=== PATIENT | male | born 1990 | race Caucasian/White ===

== ENCOUNTER 2016-08-02 12:42 | Emergency (ER) | payer SELFPAY ==
[~2016-08-02] VITALS: Ht 193 cm; Wt 68.0 kg
[2016-08-02 12:46] VITALS: BP 118/76
--- NOTE | 2016-08-02 13:25 | PHYS DOC ---
Past Medical History Past Medical History: No Pertinent History Past Surgical History: Tonsillectomy, Other Additional Past Surgical Histo: ACL SX, BACK SX, LYMPH NODE REMOVED FROM RIGHT ARM Alcohol Use: None Drug Use: None Adult General Chief Complaint Chief Complaint: BURN/SMOKE INHALATION HPI HPI Patient is a 25 year old male presents emergency department stating that he was using 3 clinical informatics physician to clean with today. He states that he has new close on network and been providing him with in which she started cleaning a 5: 00 this when he states about 8:30 he developed some stinging numbness and tingling into his right hand. He states that he took the glove off and noticed that he had some red areas on the back of the right hand. He denies any blister drainage or discharge. Patient states that he cleaned the area with soap and water and applied ice packs applied cool water to the area as well as LO and alcohol. He states he's had no relief. He has not taken any pain medication. Patient states his last tetanus immunization was in 2013. Patient is right-hand dominant. Review of Systems Review of Systems Constitutional: Denies fever or chills [] Eyes: Denies change in visual acuity, redness, or eye pain [] HENT: Denies nasal congestion or sore throat [] Respiratory: Denies cough or shortness of breath [] Cardiovascular: No additional information not addressed in HPI [] GI: Denies abdominal pain, nausea, vomiting, bloody stools or diarrhea [] : Denies dysuria or hematuria [] Musculoskeletal: Denies back pain or joint pain [] Integument: Denies rash or skin lesions. Complaint of burn to the right hand Neurologic: Denies headache, focal weakness or sensory changes [] Endocrine: Denies polyuria or polydipsia [] Allergies Allergies Allergies Coded Allergies Type Severity Reaction Last Updated Verified oxycodone Allergy Severe Anaphylaxis 08/02/16 Yes Physical Exam Physical Exam Constitutional: Well developed, well nourished, no acute distress, non-toxic appearance. [] HENT: Normocephalic, atraumatic, bilateral external ears normal, oropharynx moist, no oral exudates, nose normal. [] Eyes: PERRLA, EOMI, conjunctiva normal, no discharge. [] Neck: Normal range of motion, no tenderness, supple, no stridor. [] Cardiovascular:Heart rate regular rhythm Lungs & Thorax: No respiratory distress noted. Skin: Warm, dry, no erythema, no rash. Noted some small red areas on the back of the hand. I do not appreciate any blisters or any significant redness. Back: No tenderness Extremities: No tenderness, no cyanosis, no clubbing, ROM intact, no edema. [] Neurologic: Alert and oriented X 3, normal motor function, normal sensory function, no focal deficits noted. [] Psychologic: Affect normal, judgement normal, mood normal. [] Current Patient Data Vital Signs Vital Signs Date Time Temp Pulse Resp B/P (MAP) Pulse Ox O2 Delivery O2 Flow Rate FiO2 08/02/16 12:46 98.0 77 18 98 Room Air 98.0 EKG EKG [] Radiology/Procedures Radiology/Procedures [] Course & Med Decision Making Course & Med Decision Making Pertinent Labs and Imaging studies reviewed. (See chart for details) Poison control was notified with recommendations to clean the area with soap and water and apply ice packs and antibiotic ointment. Spoke with patient in regards to treatment recommendations from poison control also recommended Tylenol and ibuprofen for pain and discomfort and elevation. Patient agrees with discharge instructions, treatment regimens and follow-up recommendations. Signs and symptoms to return back to emergency department as been provided. [] Dragon Disclaimer Dragon Disclaimer This electronic medical record was generated, in whole or in part, using a voice recognition dictation system. Departure Departure Impression: Primary Impression: Chemical burn of back of right hand Disposition: 01 HOME, SELF-CARE Condition: STABLE Referrals: NO PCP (PCP) Patient Instructions: Chemical Burn, [id number] Additional Instructions: Keep the area clean and dry. Tylenol or ibuprofen for pain and discomfort. Ice packs to the hand as needed for pain and discomfort. You may also apply antibiotic ointment to the area. Follow-up to primary care physician in the next 3-5 days. Return back to emergency prior signs and symptoms of become worse. JUNIOR BOOGIE APRN Aug 02, 2016 13:25
[2016-08-02] MEDS ORDERED: IBUPROFEN 800 MG TABLET. PO ONE (13:30)
== END 2016-08-02 13:41 | disposition home or self-care (01) ==
LOC: ER 12:42
DX: T23.461A Corrosion of unspecified degree of back of right hand, initial encounter (principal); Z88.6 Allergy status to analgesic agent; Y93.E9 Activity, other interior property and clothing maintenance; Y99.8 Other external cause status; Y92.89 Other specified places as the place of occurrence of the external cause
CPT/HCPCS: 99282

== ENCOUNTER 2017-09-17 17:08 | Emergency (ER) | payer OTHER ==
[~2017-09-17] VITALS: Ht 193 cm; Wt 88.5 kg
--- NOTE | 2017-09-17 18:01 | PHYS DOC ---
Past Medical History Past Medical History: No Pertinent History Past Surgical History: Tonsillectomy, Other Additional Past Surgical Histo: ACL SX, BACK SX, LYMPH NODE REMOVED FROM RIGHT ARM Alcohol Use: None Drug Use: None Social History Narrative: RECOVERING DRUG USER Adult General Chief Complaint Chief Complaint: LOWEREXTREMITY INJURY HPI HPI Patient is a 26 year old male with no significant medical history who presents today complaining of intermittent sharp 6 out of 10 left medial knee pain that began yesterday after he accidentally hit his left medial knee with a pallet at work. Patient states he is able to ambulate and bear weight to the knee. Denies the pallet falling on him. Review of Systems Review of Systems Constitutional: Denies fever or chills [] Musculoskeletal: Reports left medial knee pain Integument: Denies rash or skin lesions [] Neurologic: Denies headache, focal weakness or sensory changes [] All other systems were reviewed and found to be within normal limits, except as documented in this note. Allergies Allergies Allergies Coded Allergies Type Severity Reaction Last Updated Verified oxycodone Allergy Severe Anaphylaxis 08/02/16 Yes Physical Exam Physical Exam Constitutional: Well developed, well nourished, no acute distress, non-toxic appearance. [] Skin: Warm, dry, no erythema, no rash. [] Back: No tenderness, no CVA tenderness. [] Extremities: Left medial knee with small amount of soft tissue swelling. Tenderness on the left medial knee. Full range of motion to the left knee. Negative Urvashi sign, negative Sabrina sign, negative anterior-posterior drawer sign to the left knee. +2 left pedal pulse. Cap refill less than 2 seconds the left toes. Sensation intact to the left lower extremity. Neurologic: Alert and oriented X 3, normal motor function, normal sensory function, no focal deficits noted. [] Psychologic: Affect normal, judgement normal, mood normal. [] Current Patient Data Vital Signs Vital Signs Date Time Temp Pulse Resp B/P (MAP) Pulse Ox O2 Delivery O2 Flow Rate FiO2 09/17/17 17:38 98.4 95 18 134/84 (101) 96 Room Air 98.4 EKG EKG [] Radiology/Procedures Radiology/Procedures []PROCEDURE: KNEE LEFT 4V 4 view left knee radiographs 09/17/2017 CLINICAL HISTORY: Left knee pain post injury. AP, lateral, oblique and sunrise digital radiographs of the left knee were obtained. Soft tissue swelling is seen involving the anterior right knee particularly superior to the left patella. No fracture or dislocation of the left knee is seen. There is no radiographic evidence of a joint effusion. IMPRESSION: No fracture or dislocation of the left knee is seen. Electronically signed by: Andry Rojas MD (09/17/2017 6:03 PM) [facility] DICTATED and SIGNED BY: ANDRY ROJAS MD DATE: 09/17/171800 Course & Med Decision Making Course & Med Decision Making Pertinent Labs and Imaging studies reviewed. (See chart for details) This is a 26-year-old male patient presented to the ED today with left knee contusion after accidentally hitting his left medial knee with a pallet at work. Left knee x-rays interpreted by radiologist were negative for any acute findings. Saurabh bandage applied to the left knee by the Ed RN. Neurovascular exam is intact. Ice elevation encouraged. Tylenol/ Motrin for pain. Follow-up with orthopedic doctor in 1-2 weeks as needed. Dragon Disclaimer Dragon Disclaimer This electronic medical record was generated, in whole or in part, using a voice recognition dictation system. Departure Departure Impression: Primary Impression: Contusion of left knee Disposition: HOME, SELF-CARE Condition: STABLE Referrals: NO PCP (PCP) EFREN NEVAREZ MD Follow-up with your own doctor or the provided doctor in 1-2 weeks as needed Patient Instructions: Contusion, [id number] Additional Instructions: You were seen in the emergency room with left knee contusion. You knee x-rays are negative for any acute findings. Ice elevate the knee. Wear the Saurabh bandage provided as needed and tolerated. Follow-up with the provided orthopedic doctor in 1-2 weeks as needed. Take Tylenol/Motrin for pain. Problem Qualifiers Primary Impression: Contusion of left knee Encounter type: initial encounter Qualified Codes: S80.02XA - Contusion of left knee, initial encounter CLIFYOLETTE SHRESTHA ENGLISH LECTURER Sep 17, 2017 18:01
--- NOTE | 2017-09-17 18:07 | RAD ---
4 view left knee radiographs 09/17/2017 CLINICAL HISTORY: Left knee pain post injury. AP, lateral, oblique and sunrise digital radiographs of the left knee were obtained. Soft tissue swelling is seen involving the anterior right knee particularly superior to the left patella. No fracture or dislocation of the left knee is seen. There is no radiographic evidence of a joint effusion. IMPRESSION: No fracture or dislocation of the left knee is seen. Electronically signed by: Solomon Quintero MD (09/17/2017 6:03 PM) [facility]
== END 2017-09-17 18:22 | disposition home or self-care (01) ==
LOC: ER 17:08
DX: S80.02XA Contusion of left knee, initial encounter (principal); Z88.5 Allergy status to narcotic agent; W22.8XXA Striking against or struck by other objects, initial encounter; Y93.89 Activity, other specified; Y99.0 Civilian activity done for income or pay; Y92.69 Other specified industrial and construction area as the place of occurrence of the external cause
CPT/HCPCS: 73564; 99284

== ENCOUNTER 2017-10-24 16:37 | Emergency (ER) | payer SELFPAY ==
[~2017-10-24] VITALS: Ht 190.5 cm; Wt 93.0 kg
--- NOTE | 2017-10-24 17:07 | EKG ---
[facility] [address] [place] [address] Test Date: 2017-10-24 Test Time: 16:43:37 Pat Name: TG SUMMERS Department: Room: Gender: M Non Destructive Tester: [id number] : 1990 Requested By: ELIANE ALLEN Order Number: [id number] Reading MD: Enoch Jackson Measurements Intervals [place] Rate: 108 P: 66 [place]: 174 QRS: 13 QRSD: 106 T: 43 QT: 312 QTc: 422 Interpretive Statements SINUS RHYTHM POSSIBLE LEFT ATRIAL ABNORMALITY INCOMPLETE RIGHT BUNDLE BRANCH BLOCK Electronically Signed On 10-26-2017 11:17:42 CDT by Enoch Jackson
[2017-10-24] MEDS ORDERED: IV NORMAL SALINE 1000ML BAG 1,000 ML IV ONE (17:15)
--- NOTE | 2017-10-24 17:25 | PHYS DOC ---
Past Medical History Past Medical History: Hypertension, Other Additional Past Medical Histor: HEART MURMER, substance abuse Past Surgical History: Other Additional Past Surgical Histo: RIGHT KNEE ACL MCL, RIGHT ACHILLES Alcohol Use: Occasionally Drug Use: None Adult General Chief Complaint Chief Complaint: SUBSTANCE ABUSE HPI HPI 26-year-old male presents to ER via EMS after unknown person called EMS as pt had been in his car for several hours in local parking lot. EMS reported pt had initial HR 150-160s and on arrival to ER pt has 102 HR denying complaints. Pt reports he has had sm. quantity of alcohol, several energy drinks, lg amt of candy, and had taken a couple of "hits" on canned duster. Pt denies any CP, palpitations, SOA, dizziness, or DAWN. He reports he had 2 episodes of vomiting which he feels is d/t the candy and energy drinks. Pt denies any LOC and reports his car had air conditioner on as he was waiting on his girlfriend to get off work. Pt denies any illicit drug use as he is on probation since February. He reports he vapes. Pt denies any SI or anxiety/depression. Review of Systems Review of Systems Constitutional: Denies fever or chills [] Eyes: Denies change in visual acuity, redness, or eye pain [] HENT: Denies nasal congestion or sore throat [] Respiratory: Denies cough or shortness of breath [] Cardiovascular: Denies chest pain or palpitations GI: Denies abdominal pain, bloody stools or diarrhea. Reports had nausea with 2 vomiting episodes : Denies dysuria or hematuria [] Musculoskeletal: Denies back pain or joint pain [] Integument: Denies rash, swelling, or skin lesions [] Neurologic: Denies headache, focal weakness or sensory changes [] Endocrine: Denies polyuria or polydipsia [] All other systems were reviewed and found to be within normal limits, except as documented in this note. Current Medications Current Medications Current Medications Medications (Trade) Dose Ordered Sig/Pollo Start Time Stop Time Status Last Admin Dose Admin Sodium Chloride 1,000 ml @ 1,000 mls/hr 1X ONCE 10/24/17 17:15 10/24/17 18:14 DC 10/24/17 17:30 1,000 MLS/HR Allergies Allergies Allergies Coded Allergies Type Severity Reaction Last Updated Verified oxycodone Allergy Severe Anaphylaxis 08/02/16 Yes Physical Exam Physical Exam Constitutional: Well developed, well nourished, no acute distress, non-toxic appearance. [] HENT: Normocephalic, atraumatic, bilateral ears normal, oropharynx pink/dry, no oral exudates, nose normal. [] Eyes: 3mm PERRLA, no nystagmus, conjunctiva normal, no discharge. 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 Resp. equal/ nonlabored Abdomen: Bowel sounds normal, soft, no tenderness, no masses, no pulsatile masses. [] Skin: Warm, dry, no erythema, no rash. [] Back: No tenderness, no CVA tenderness. [] Extremities: No tenderness, no cyanosis, no clubbing, ROM intact, no edema. [] Neurologic: Alert and oriented X 3, normal motor function, normal sensory function, no focal deficits noted. [] Psychologic: Affect normal, judgement normal, mood normal. Denies SI. No uncontrollable behavior Current Patient Data Vital Signs Vital Signs Date Time Temp Pulse Resp B/P (MAP) Pulse Ox O2 Delivery O2 Flow Rate FiO2 10/24/17 16:50 98.6 106 16 141/85 (103) 99 Room Air 98.6 Lab Values Laboratory Tests Test 10/24/17 17:30 White Blood Count 7.5 x10^3/uL (4.0-11.0) Red Blood Count 5.24 x10^6/uL (4.30-5.70) Hemoglobin 17.3 g/dL (13.0-17.5) Hematocrit 50.2 % (39.0-53.0) Mean Corpuscular Volume 96 fL (79-100) Mean Corpuscular Hemoglobin 33 pg (25-35) Mean Corpuscular Hemoglobin Concent 35 g/dL (31-37) Red Cell Distribution Width 13.8 % (11.5-14.5) Platelet Count 147 x10^3/uL (140-400) Neutrophils (%) (Auto) 61 % (31-73) Lymphocytes (%) (Auto) 24 % (24-48) Monocytes (%) (Auto) 10 % (0-9) H Eosinophils (%) (Auto) 5 % (0-3) H Basophils (%) (Auto) 1 % (0-3) Neutrophils # (Auto) 4.6 x10^3uL (1.8-7.7) Lymphocytes # (Auto) 1.8 x10^3/uL (1.0-4.8) Monocytes # (Auto) 0.7 x10^3/uL (0.0-1.1) Eosinophils # (Auto) 0.3 x10^3/uL (0.0-0.7) Basophils # (Auto) 0.1 x10^3/uL (0.0-0.2) Urine Collection Type Unknown Urine Color Yellow Urine Clarity Clear Urine pH 6.0 Urine Specific [place] 1.020 Urine Protein Negative mg/dL (NEG-TRACE) Urine Glucose (UA) Negative mg/dL (NEG) Urine Ketones (Stick) Negative mg/dL (NEG) Urine Blood Negative (NEG) Urine Nitrite Negative (NEG) Urine Bilirubin Negative (NEG) Urine Urobilinogen Dipstick 0.2 mg/dL (0.2 mg/dL) Urine Leukocyte Esterase Negative (NEG) Urine RBC Occ /HPF (0-2) Urine WBC Rare /HPF (0-4) Urine Squamous Epithelial Cells None /LPF Urine Bacteria 0 /HPF (0-FEW) Urine Mucus Slight /LPF Sodium Level 144 mmol/L (136-145) Potassium Level 3.7 mmol/L (3.5-5.1) Chloride Level 107 mmol/L (98-107) Carbon Dioxide Level 24 mmol/L (21-32) Anion Gap 13 (6-14) Blood Urea Nitrogen 10 mg/dL (8-26) Creatinine 0.9 mg/dL (0.7-1.3) Estimated GFR (Cockcroft-Gault) 102.8 BUN/Creatinine Ratio 11 (6-20) Glucose Level 112 mg/dL (70-99) H Calcium Level 9.4 mg/dL (8.5-10.1) Magnesium Level 2.6 mg/dL (1.8-2.4) H Total Bilirubin 0.5 mg/dL (0.2-1.0) Aspartate Amino Transferase (AST) 22 U/L (15-37) Alanine Aminotransferase (ALT) 29 U/L (16-63) Alkaline Phosphatase 89 U/L (46-116) Troponin I Quantitative < 0.017 ng/mL (0.000-0.055) Total Protein 7.8 g/dL (6.4-8.2) Albumin 4.2 g/dL (3.4-5.0) Albumin/Globulin Ratio 1.2 (1.0-1.7) Lipase 361 U/L (73-393) Urine Opiates Screen Neg (NEG) Urine Methadone Screen Neg (NEG) Urine Barbiturates Neg (NEG) Urine Phencyclidine Screen Neg (NEG) Urine Amphetamine/Methamphetamine Neg (NEG) Urine Benzodiazepines Screen Neg (NEG) Urine Cocaine Screen Neg (NEG) Urine Cannabinoids Screen Neg (NEG) Ethyl Alcohol Level 151 mg/dL (0-10) H Urine Ethyl Alcohol Pos (NEG) Laboratory Tests 10/24/17 17:30 Laboratory Tests 10/24/17 17:30 EKG EKG EKG obtained at 1643 on 10/24/[address] Jones Sinus tachycardia Incomplete Rt BBB Vent rate 108 Radiology/Procedures Radiology/Procedures [] Course & Med Decision Making Course & Med Decision Making Pertinent Labs reviewed. (See chart for details) Discussed lab results with pt and his girlfriend with unremarkable results- EKG with no acute STEMI and troponin <0.017. Alcohol level 151- pt advised of this and not to drive following ER discharge. After IV flds pt's HR 84 and he denies any sxs. He reports he does feel better after IV flds. He denies nausea and has had no active vomiting episodes while in ER. Discussion had regarding alcohol/ huffing/substance use cessation. Discussed well balanced meal avoiding energy drinks and increasing water intake. Pt is in no visible distress during discussion. Education provided on s&s to return to ER for and discharge instructions were discussed. Will provide community resources for f/u. Moises Disclaimer Moises Disclaimer This electronic medical record was generated, in whole or in part, using a voice recognition dictation system. Departure Departure Impression: Primary Impression: Huffing Additional Impression: Tachycardia Disposition: HOME, SELF-CARE Condition: STABLE Referrals: NO PCP (PCP) Patient Instructions: Nonspecific Tachycardia, Substance Abuse-Brief Additional Instructions: As discussed avoid energy drinks, alcohol, and huffing or other illicit substance use/abuse. Drink plenty of water. Problem Qualifiers ELIANE ALLEN APRN Oct 24, 2017 17:25
[2017-10-24 17:39] LABS: BASO # 0.1 x10^3/uL (0.0-0.2); BASO % 1 % (0-3); BILIRUBIN,URINE NEGATIVE (NEG); CLARITY,URINE CLEAR; COLOR,URINE YELLOW; EOS # 0.3 x10^3/uL (0.0-0.7); EOS % 5 % (0-3); HEMATOCRIT 50.2 % (39.0-53.0); HEMOGLOBIN 17.3 g/dL (13.0-17.5); LYMPH # 1.8 x10^3/uL (1.0-4.8); LYMPH % 24 % (24-48); MEAN CORPUSCULAR HEMOGLOBIN 33 pg (25-35); MEAN CORPUSCULAR HGB CONC 35 g/dL (31-37); MEAN CORPUSCULAR VOLUME 96 fL (79-100); MONO # 0.7 x10^3/uL (0.0-1.1); MONO % 10 % (0-9); NEUT # 4.6 x10^3uL (1.8-7.7); NEUT % 61 % (31-73); NITRITE,URINE NEGATIVE (NEG); PLATELET COUNT 147 x10^3/uL (140-400); PROTEIN,URINE NEGATIVE (NEG-TRACE); RED BLOOD COUNT 5.24 x10^6/uL (4.30-5.70); RED CELL DISTRIBUTION WIDTH 13.8 % (11.5-14.5); UROBILINOGEN,URINE 0.2 mg/dL (0.2 mg/dL); WHITE BLOOD COUNT 7.5 x10^3/uL (4.0-11.0)
[2017-10-24 17:45] LABS: AMPHETAMINE/METHAMPHETAMINE NEG (NEG); BACTERIA,URINE 0 /HPF (0-FEW); BARBITURATES NEG (NEG); BENZODIAZEPINES NEG (NEG); CANNABINOIDS NEG (NEG); COCAINE NEG (NEG); METHADONE NEG (NEG); OPIATES NEG (NEG); PHENCYCLIDINE NEG (NEG); RBC,URINE OCC /HPF (0-2); WBC,URINE RARE /HPF (0-4)
[2017-10-24 17:50] LABS: CALCIUM 9.4 mg/dL (8.5-10.1); CREATININE 0.9 mg/dL (0.7-1.3); GFR 102.8; POTASSIUM 3.7 mmol/L (3.5-5.1)
[2017-10-24 17:55] LABS: ALBUMIN 4.2 g/dL (3.4-5.0); ALBUMIN/GLOBULIN RATIO 1.2 (1.0-1.7); MAGNESIUM 2.6 mg/dL (1.8-2.4); TOTAL BILIRUBIN 0.5 mg/dL (0.2-1.0); TOTAL PROTEIN 7.8 g/dL (6.4-8.2)
[2017-10-24 18:59] VITALS: BP 147/87
== END 2017-10-24 19:03 | disposition home or self-care (01) ==
LOC: ER 16:37
DX: R00.0 Tachycardia, unspecified (principal); F18.10 Inhalant abuse, uncomplicated; R11.2 Nausea with vomiting, unspecified; I10 Essential (primary) hypertension; Z88.5 Allergy status to narcotic agent
CPT/HCPCS: 36415; 80053; 80307; 81001; 83690; 83735; 84484; 85025; 93005; 96360; 99285; G0480; J7030; G0479